=== PATIENT | female | born 1965 | race Caucasian/White ===

== ENCOUNTER 2021-02-27 12:37 | Outpatient (CLI) | payer MEDICARE, MEDICAID | END 2021-02-27 12:38 | disposition home or self-care (01) | LOC: CSHMAMMO 12:37 | PROVIDERS: ATTEND Family Medicine | DX: Z12.31 Encounter for screening mammogram for malignant neoplasm of breast (principal); Z80.3 Family history of malignant neoplasm of breast | CPT/HCPCS: 77063; 77067 ==

== ENCOUNTER 2021-06-09 19:11 | Emergency (ER) | payer MEDICARE, OTHER ==
[2021-06-09 20:18] LABS: #Eosinphils 0.2 10x3/uL (0.0-0.5); #Monocytes 0.5 10x3/uL (0.0-1.1); #Neutrophils 3.2 10x3/uL (1.5-8.4); %Basophils 0.6 % (0.0-2.0); %Eosinophils 4.5 % (0.0-6.0); %Lymphocytes 23.6 % (18.0-47.0); %Monocytes 10.2 % (0.0-10.0); %Neutrophils 60.9 % (40.0-75.0); Hemoglobin 12.1 g/dL (12.0-15.5); Mean Corpuscular HGB CONC 31.6 g/dL (32.0-36.0); Mean Corpuscular Hemoglobin 27.4 pg (27.0-33.0); Mean Corpuscular Volume 86.7 fl (81.6-98.3); Mean Platelet Volume 9.8 fl (7.4-10.4); Platelet Count 220 10x3/uL (150-450); RBC Distribution Width 13.6 % (11.5-14.5); Red Blood Cell (RBC) Count 4.42 10x6/uL (3.90-5.03); White Blood Cell (WBC) Count 5.3 10x3/uL (3.5-10.5)
[2021-06-09 20:27] LABS: Bilirubin Neg (Negative); Blood, Urine Negative (Negative); Clarity Clear (Clear); Glucose, Urine (Dipstick) Normal (Negative); Ketone, Urine Negative (Negative); Leukocyte Negative (Negative); Nitrite Negative (Negative); Protein, Urine (Dipstick) Negative (Neg-Trace); Urobilinogen Normal mg/dL (Less than 2); pH, Urine 6.5 (5.0-9.0)
[2021-06-09 20:38] LABS: ALT (SGPT) 9 U/L (8-55); AST (SGOT) 17 U/L (5-34); Albumin 4.1 g/dL (3.5-5.0); Alkaline Phosphatase 79 U/L (40-110); Anion Gap 13 mmol/L (10-20); BUN (Urea Nitrogen) 7 mg/dL (9.8-20.1); Bilirubin, Total 0.3 mg/dL (0.2-1.2); CK (CPK) 97 U/L (29-168); Calc. Creatinine Clearance 0 mL/min (70-130); Calcium 9.1 mg/dL (7.8-10.44); Carbon Dioxide 30 mmol/L (22-29); Chloride 100 mmol/L (98-107); Globulin 3.3 g/dL (2.4-3.5); Glucose 85 mg/dL (70-105); Potassium 3.8 mmol/L (3.5-5.1); Protein, Total 7.4 g/dL (6.0-8.3); Sodium 139 mmol/L (136-145)
== END 2021-06-09 21:50 | disposition home or self-care (01) ==
LOC: CSHERS 19:11
DX: B34.9 Viral infection, unspecified (principal); Z86.16 Personal history of COVID-19; I10 Essential (primary) hypertension; J45.909 Unspecified asthma, uncomplicated; Z79.899 Other long term (current) drug therapy; Z79.82 Long term (current) use of aspirin
CPT/HCPCS: 70450; 71275; 80053; 81003; 82550; 84484; 85025; 93005; 94760

== ENCOUNTER 2022-01-12 20:53 | Inpatient (IN) | payer OTHER, MEDICAID ==
[~2022-01-12 20:53] MED LIST: Iopamidol 370 76% 100 ML VIAL ONE
[2022-01-12] MEDS ORDERED: Albuterol Sulfate 2.5 mg/3 ml Neb ONE (21:05)
[2022-01-12] MEDS ORDERED: methylPREDNISolone Sod Succ/PF 125 MG/2 ML VIAL ONE (21:08)
[2022-01-12 21:21] LABS: #Eosinphils 0.2 10x3/uL (0.0-0.5); #Monocytes 0.7 10x3/uL (0.0-1.1); #Neutrophils 6.8 10x3/uL (1.5-8.4); %Basophils 0.3 % (0.0-2.0); %Eosinophils 1.9 % (0.0-6.0); %Lymphocytes 16.7 % (18.0-47.0); %Monocytes 7.9 % (0.0-10.0); %Neutrophils 72.3 % (40.0-75.0); Hemoglobin 12.8 g/dL (12.0-15.5); Mean Corpuscular HGB CONC 33.6 g/dL (32.0-36.0); Mean Corpuscular Hemoglobin 28.1 pg (27.0-33.0); Mean Corpuscular Volume 83.6 fl (81.6-98.3); Platelet Count 284 10x3/uL (150-450); RBC Distribution Width 13.6 % (11.5-14.5); Red Blood Cell (RBC) Count 4.56 10x6/uL (3.90-5.03); White Blood Cell (WBC) Count 9.4 10x3/uL (3.5-10.5)
[2022-01-12 21:44] LABS: ALT (SGPT) 19 U/L (8-55); AST (SGOT) 23 U/L (5-34); Albumin 4.3 g/dL (3.5-5.0); Alkaline Phosphatase 89 U/L (40-110); Anion Gap 18 mmol/L (10-20); BUN (Urea Nitrogen) 14 mg/dL (9.8-20.1); Bilirubin, Total 0.3 mg/dL (0.2-1.2); Calc. Creatinine Clearance 0 mL/min (70-130); Calcium 9.5 mg/dL (7.8-10.44); Carbon Dioxide 25 mmol/L (22-29); Chloride 93 mmol/L (98-107); Estimated GFR 32; Globulin 3.3 g/dL (2.4-3.5); Glucose 147 mg/dL (70-105); Magnesium 1.7 mg/dL (1.6-2.6); Potassium 3.1 mmol/L (3.5-5.1); Protein, Total 7.6 g/dL (6.0-8.3); Sodium 133 mmol/L (136-145)
[2022-01-13 00:02] LABS: Lactic Acid 2.2 mmol/L (0.5-2.2)
[2022-01-13 00:45] LABS: SARS-CoV-2 NAA Rapid Test DETECTED (NotDetected)
[2022-01-13] MEDS ORDERED: Sodium Chloride 0.9% 1,000 ML IV SCH ×3 (00:45→16:00)
[2022-01-13 01:28] LABS: Troponin I Less than 0.010 ng/mL (< 0.028)
[2022-01-13 01:53] LABS: Hemoglobin 12.4 g/dL (12.0-15.5); Platelet Count 291 10x3/uL (150-450)
[2022-01-13] MEDS ORDERED: Heparin 25,000 units/D5W 500 ML IVPB SCH (02:00)
[2022-01-13] MEDS ORDERED: Potassium Chloride 20 MEQ TAB PO SCH (02:00)
[2022-01-13] MEDS ORDERED: Benztropine 1 MG TAB PO SCH (02:00)
[2022-01-13] MEDS ORDERED: rOPINIRole HCl 1 MG TAB PO SCH (02:00)
[2022-01-13] MEDS ORDERED: traZODone HCl 50 MG TAB PO SCH (02:00)
[2022-01-13] MEDS ORDERED: Heparin 10,000 UNITS/ 10 ML VIAL SLOW IVP SCH (02:00)
[2022-01-13] MEDS ORDERED: Potassium Chloride 20 MEQ/100 ML PREMIX BAG ONE (02:03)
[2022-01-13] MEDS: Potassium Chloride 20 MEQ in Premix Bag 1 BAG IVPB SCH ×2 (02:08→04:29)
[2022-01-13] MEDS: Azithromycin 500 MG in Sodium Chloride 0.9% 250 ML 250 ML IVPB SCH (02:09)
[2022-01-13] MEDS: cefTRIAXone\\ROCEPHIN 2 GM in Sodium Chloride 0.9% 100 ML IVPB SCH (02:12)
[2022-01-13 04:59] LABS: #Monocytes 0.1 10x3/uL (0.0-1.1); #Neutrophils 8.1 10x3/uL (1.5-8.4); %Basophils 0.2 % (0.0-2.0); %Eosinophils 0.1 % (0.0-6.0); %Lymphocytes 7.8 % (18.0-47.0); %Neutrophils 90.1 % (40.0-75.0); Mean Corpuscular HGB CONC 32.9 g/dL (32.0-36.0); Mean Corpuscular Volume 85.3 fl (81.6-98.3); Platelet Count 296 10x3/uL (150-450); RBC Distribution Width 13.5 % (11.5-14.5); Red Blood Cell (RBC) Count 4.28 10x6/uL (3.90-5.03)
[2022-01-13 05:09] LABS: Troponin I Less than 0.010 ng/mL (< 0.028)
[2022-01-13 05:54] LABS: Anion Gap 18 mmol/L (10-20); BUN (Urea Nitrogen) 18 mg/dL (9.8-20.1); Calc. Creatinine Clearance 96 mL/min (70-130); Calcium 9.8 mg/dL (7.8-10.44); Carbon Dioxide 25 mmol/L (22-29); Chloride 95 mmol/L (98-107); Estimated GFR 42; Glucose 198 mg/dL (70-105); Magnesium 1.9 mg/dL (1.6-2.6); Sodium 134 mmol/L (136-145)
[2022-01-13 05:57] VITALS: BMI 45.6
[2022-01-13] MEDS ORDERED: methylPREDNISolone Sod Succ 40 MG VIAL IVP SCH (06:00)
[2022-01-13] MEDS: Dexamethasone 4 mg/ml Vial SLOW IVP SCH (08:19)
[2022-01-13] MEDS: Cholecalciferol 1,000 UNITS (25 MCG) TAB PO SCH (08:20)
[2022-01-13] MEDS: Zinc Sulfate 220 MG CAP PO SCH (08:20)
[2022-01-13] MEDS: Aspirin 81 mg Enteric Coated Tablet PO SCH (08:20)
[2022-01-13] MEDS ORDERED: DULoxetine 30 MG CAP PO SCH (09:00)
[2022-01-13] MEDS ORDERED: Ascorbic Acid 500 mg Chewable Tablet PO SCH (09:00)
[2022-01-13] MEDS ORDERED: REMDESIVIR 200 MG in Sodium Chloride 0.9% 250 ML 210 ML IV SCH (09:30)
[2022-01-13 09:41] LABS: PTT 126.1 sec (22.0-33.0)
[2022-01-13] MEDS: Apixaban 5 MG TAB PO SCH ×2 (11:36→21:35)
[2022-01-13] MEDS: Gabapentin 300 MG CAP PO SCH ×2 (14:36→21:36)
[2022-01-13] MEDS ORDERED: Acetaminophen 325 MG TAB PO SCH (21:00)
[2022-01-13] MEDS ORDERED: Cepastat Lozenges 1 LOZ PO SCH (21:15)
[2022-01-13] MEDS: traZODone HCl 50 MG TAB PO SCH (21:35)
[2022-01-13] MEDS: rOPINIRole HCl 1 MG TAB PO SCH (21:36)
[2022-01-13] MEDS: Methocarbamol 500 MG TAB PO SCH (21:37)
[2022-01-14] MEDS: cefTRIAXone\\ROCEPHIN 2 GM in Sodium Chloride 0.9% 100 ML IVPB SCH (02:02)
[2022-01-14] MEDS: Azithromycin 500 MG in Sodium Chloride 0.9% 250 ML 250 ML IVPB SCH (03:06)
[2022-01-14 06:27] LABS: ALT (SGPT) 14 U/L (8-55); AST (SGOT) 18 U/L (5-34); Albumin 3.1 g/dL (3.5-5.0); Alkaline Phosphatase 56 U/L (40-110); Anion Gap 16 mmol/L (10-20); BUN (Urea Nitrogen) 13 mg/dL (9.8-20.1); Bilirubin, Direct 0.1 mg/dL (0.1-0.3); Bilirubin, Total 0.2 mg/dL (0.2-1.2); Calc. Creatinine Clearance 176 mL/min (70-130); Calcium 7.4 mg/dL (7.8-10.44); Carbon Dioxide 24 mmol/L (22-29); Chloride 106 mmol/L (98-107); Estimated GFR 89; Glucose 118 mg/dL (70-105); Potassium 3.1 mmol/L (3.5-5.1); Protein, Total 5.5 g/dL (6.0-8.3); Sodium 143 mmol/L (136-145)
[2022-01-14] MEDS: Aspirin 81 mg Enteric Coated Tablet PO SCH (08:16)
[2022-01-14] MEDS: Apixaban 5 MG TAB PO SCH ×2 (08:16→21:12)
[2022-01-14] MEDS: Ascorbic Acid 500 mg Chewable Tablet PO SCH (08:17)
[2022-01-14] MEDS: Carvedilol 3.125 MG TAB PO SCH ×2 (08:17→17:51)
[2022-01-14] MEDS: Benztropine 1 MG TAB PO SCH (08:17)
[2022-01-14] MEDS: Donepezil HCl 5 MG TAB PO SCH (08:17)
[2022-01-14] MEDS: Zinc Sulfate 220 MG CAP PO SCH (08:17)
[2022-01-14] MEDS: Cholecalciferol 1,000 UNITS (25 MCG) TAB PO SCH (08:17)
[2022-01-14] MEDS: DULoxetine 30 MG CAP PO SCH (08:18)
[2022-01-14] MEDS: Methocarbamol 500 MG TAB PO SCH ×2 (08:20→21:14)
[2022-01-14] MEDS: Dexamethasone 4 mg/ml Vial SLOW IVP SCH (08:21)
[2022-01-14] MEDS: REMDESIVIR 100 MG in Sodium Chloride 0.9% 250 ML 230 ML IV SCH (09:45)
[2022-01-14] MEDS: Gabapentin 400 MG CAP PO SCH ×3 (09:56→21:13)
[2022-01-14] MEDS ORDERED: Moisturizing Cream (Eucerin) 113 GM JAR TOP PRN (10:16)
[2022-01-14] MEDS ORDERED: Calcium Carbonate 500 MG ChewTAB PO PRN (10:16)
[2022-01-14] MEDS ORDERED: Labetalol HCl 100 MG/20 ML VIAL SLOW IVP PRN (10:16)
[2022-01-14] MEDS ORDERED: diphenhydrAMINE 25 MG CAP PO PRN (10:16)
[2022-01-14] MEDS ORDERED: hydrALAZINE 20 MG/ML VIAL SLOW IVP PRN (10:16)
[2022-01-14] MEDS ORDERED: Acetaminophen 650 MG Suppository PR PRN (10:16)
[2022-01-14] MEDS ORDERED: Artificial Tear Sol 15 ML BOT EA EYE PRN (10:16)
[2022-01-14] MEDS ORDERED: Ondansetron ODT 4 MG TAB PO PRN (10:16)
[2022-01-14] MEDS ORDERED: Loperamide HCl 2 MG CAP PO PRN ×2 (10:16)
[2022-01-14] MEDS ORDERED: GUAIFENESIN SF SOLN 200 MG/10 ML UDCUP PO PRN (10:16)
[2022-01-14] MEDS ORDERED: Cepastat Lozenges 1 LOZ PO PRN (10:16)
[2022-01-14] MEDS: Acetaminophen 500 MG TAB PO PRN ×2 (11:37→21:12)
[2022-01-14] MEDS ORDERED: Electrolyte Replacement Protocol 1 EACH FS SCH (17:15)
[2022-01-14] MEDS ORDERED: Ventolin HFA Inhaler 60 PUFF INHALER INH PRN (19:12)
[2022-01-14] MEDS ORDERED: Potassium Chloride 20 MEQ TAB PO SCH (20:00)
[2022-01-14] MEDS ORDERED: Magnesium 2 GM/50 ML(in water) 2 GM in Premix Bag 1 BAG IVPB SCH (20:00)
[2022-01-14] MEDS: guaiFENesin ER 600 MG TAB PO SCH (21:12)
[2022-01-14] MEDS: Famotidine 20 MG TAB PO SCH (21:14)
[2022-01-14] MEDS: rOPINIRole HCl 1 MG TAB PO SCH (21:14)
[2022-01-14] MEDS: traZODone HCl 50 MG TAB PO SCH (21:15)
[2022-01-15 01:17] LABS: Platelet Count 275 10x3/uL (150-450)
[2022-01-15 01:18] LABS: Hemoglobin 11.7 g/dL (12.0-15.5)
[2022-01-15] MEDS ORDERED: cefTRIAXone\\ROCEPHIN 1 GM in Sodium Chloride 0.9% 100 ML IVPB SCH (02:00)
[2022-01-15] MEDS: Azithromycin 500 MG in Sodium Chloride 0.9% 250 ML 250 ML IVPB SCH (02:44)
[2022-01-15 06:05] LABS: ALT (SGPT) 18 U/L (8-55); AST (SGOT) 20 U/L (5-34); Albumin 3.6 g/dL (3.5-5.0); Alkaline Phosphatase 62 U/L (40-110); Anion Gap 14 mmol/L (10-20); BUN (Urea Nitrogen) 17 mg/dL (9.8-20.1); Bilirubin, Direct 0.1 mg/dL (0.1-0.3); Bilirubin, Total 0.2 mg/dL (0.2-1.2); Calc. Creatinine Clearance 125 mL/min (70-130); Calcium 8.6 mg/dL (7.8-10.44); Carbon Dioxide 28 mmol/L (22-29); Chloride 104 mmol/L (98-107); Estimated GFR 59; Glucose 100 mg/dL (70-105); Magnesium 2.3 mg/dL (1.6-2.6); Potassium 4.6 mmol/L (3.5-5.1); Protein, Total 6.4 g/dL (6.0-8.3); Sodium 141 mmol/L (136-145)
[2022-01-15] MEDS: Carvedilol 3.125 MG TAB PO SCH ×2 (10:00→17:43)
[2022-01-15] MEDS: Aspirin 81 mg Enteric Coated Tablet PO SCH (10:00)
[2022-01-15] MEDS: Benztropine 1 MG TAB PO SCH (10:00)
[2022-01-15] MEDS: guaiFENesin ER 600 MG TAB PO SCH ×2 (10:01→21:23)
[2022-01-15] MEDS: Apixaban 5 MG TAB PO SCH ×2 (10:01→21:22)
[2022-01-15] MEDS: Methocarbamol 500 MG TAB PO SCH ×2 (10:01→21:52)
[2022-01-15] MEDS: Cholecalciferol 1,000 UNITS (25 MCG) TAB PO SCH (10:01)
[2022-01-15] MEDS: Gabapentin 400 MG CAP PO SCH ×3 (10:02→21:23)
[2022-01-15] MEDS: DULoxetine 30 MG CAP PO SCH (10:02)
[2022-01-15] MEDS: Zinc Sulfate 220 MG CAP PO SCH (10:02)
[2022-01-15] MEDS: Famotidine 20 MG TAB PO SCH ×2 (10:03→21:22)
[2022-01-15] MEDS: Acetaminophen 500 MG TAB PO PRN ×2 (10:03→21:29)
[2022-01-15] MEDS: Donepezil HCl 5 MG TAB PO SCH (10:03)
[2022-01-15] MEDS: Ascorbic Acid 500 mg Chewable Tablet PO SCH (10:03)
[2022-01-15] MEDS: REMDESIVIR 100 MG in Sodium Chloride 0.9% 250 ML 230 ML IV SCH (10:04)
[2022-01-15] MEDS: rOPINIRole HCl 1 MG TAB PO SCH (21:22)
[2022-01-15] MEDS: traZODone HCl 50 MG TAB PO SCH (21:22)
[2022-01-16 06:38] LABS: ALT (SGPT) 19 U/L (8-55); AST (SGOT) 18 U/L (5-34); Albumin 3.8 g/dL (3.5-5.0); Alkaline Phosphatase 61 U/L (40-110); Bilirubin, Direct 0.2 mg/dL (0.1-0.3); Bilirubin, Total 0.4 mg/dL (0.2-1.2); Protein, Total 6.7 g/dL (6.0-8.3)
[2022-01-16] MEDS: Non-Formulary Medication 1 EACH (Iron [Iron] 18 MG Tablet) PO SCH ×2 (07:59→21:34)
[2022-01-16] MEDS: VALBENAZINE TOSYLATE 40 MG PO SCH ×2 (07:59→21:35)
[2022-01-16] MEDS: VALBENAZINE TOSYLATE 80 MG PO SCH ×2 (07:59→21:35)
[2022-01-16] MEDS: REMDESIVIR 100 MG in Sodium Chloride 0.9% 250 ML 230 ML IV SCH (10:51)
[2022-01-16] MEDS: Methocarbamol 500 MG TAB PO SCH ×2 (10:51→21:05)
[2022-01-16] MEDS: Aspirin 81 mg Enteric Coated Tablet PO SCH (10:52)
[2022-01-16] MEDS: DULoxetine 30 MG CAP PO SCH (10:52)
[2022-01-16] MEDS: guaiFENesin ER 600 MG TAB PO SCH ×2 (10:52→21:03)
[2022-01-16] MEDS: Gabapentin 400 MG CAP PO SCH ×3 (10:53→21:03)
[2022-01-16] MEDS: Acetaminophen 500 MG TAB PO PRN (10:53)
[2022-01-16] MEDS: Cholecalciferol 1,000 UNITS (25 MCG) TAB PO SCH (10:54)
[2022-01-16] MEDS: Ascorbic Acid 500 mg Chewable Tablet PO SCH (10:54)
[2022-01-16] MEDS: Famotidine 20 MG TAB PO SCH ×2 (10:54→21:03)
[2022-01-16] MEDS: Apixaban 5 MG TAB PO SCH ×2 (10:54→21:04)
[2022-01-16] MEDS: Donepezil HCl 5 MG TAB PO SCH (10:54)
[2022-01-16] MEDS: Zinc Sulfate 220 MG CAP PO SCH (10:55)
[2022-01-16] MEDS: Carvedilol 3.125 MG TAB PO SCH ×2 (10:55→16:08)
[2022-01-16] MEDS: Benztropine 1 MG TAB PO SCH (10:55)
[2022-01-16] MEDS: traZODone HCl 50 MG TAB PO SCH (21:03)
[2022-01-16] MEDS: rOPINIRole HCl 1 MG TAB PO SCH (21:05)
[2022-01-17 00:48] LABS: Hemoglobin 12.5 g/dL (12.0-15.5); Platelet Count 283 10x3/uL (150-450)
[2022-01-17 05:05] LABS: ALT (SGPT) 18 U/L (8-55); AST (SGOT) 18 U/L (5-34); Albumin 3.8 g/dL (3.5-5.0); Alkaline Phosphatase 67 U/L (40-110); Bilirubin, Direct 0.2 mg/dL (0.1-0.3); Bilirubin, Total 0.5 mg/dL (0.2-1.2); Protein, Total 6.7 g/dL (6.0-8.3)
[2022-01-17] MEDS: REMDESIVIR 100 MG in Sodium Chloride 0.9% 250 ML 230 ML IV SCH (09:07)
[2022-01-17] MEDS: Benztropine 1 MG TAB PO SCH (09:08)
[2022-01-17] MEDS: Apixaban 5 MG TAB PO SCH ×2 (09:08→21:15)
[2022-01-17] MEDS: Methocarbamol 500 MG TAB PO SCH ×2 (09:08→21:17)
[2022-01-17] MEDS: Ascorbic Acid 500 mg Chewable Tablet PO SCH (09:08)
[2022-01-17] MEDS: DULoxetine 30 MG CAP PO SCH (09:09)
[2022-01-17] MEDS: Famotidine 20 MG TAB PO SCH ×2 (09:09→21:16)
[2022-01-17] MEDS: Gabapentin 400 MG CAP PO SCH ×3 (09:12→21:15)
[2022-01-17] MEDS: Carvedilol 3.125 MG TAB PO SCH ×2 (09:12→17:33)
[2022-01-17] MEDS: Donepezil HCl 5 MG TAB PO SCH (09:12)
[2022-01-17] MEDS: guaiFENesin ER 600 MG TAB PO SCH ×2 (09:12→21:16)
[2022-01-17] MEDS: Cholecalciferol 1,000 UNITS (25 MCG) TAB PO SCH (09:13)
[2022-01-17] MEDS: Zinc Sulfate 220 MG CAP PO SCH (09:13)
[2022-01-17] MEDS: Aspirin 81 mg Enteric Coated Tablet PO SCH (09:13)
[2022-01-17] MEDS: rOPINIRole HCl 1 MG TAB PO SCH (21:16)
[2022-01-17] MEDS: traZODone HCl 50 MG TAB PO SCH (21:17)
[2022-01-18] MEDS: Cholecalciferol 1,000 UNITS (25 MCG) TAB PO SCH (08:20)
[2022-01-18] MEDS: Ascorbic Acid 500 mg Chewable Tablet PO SCH (08:20)
[2022-01-18] MEDS: guaiFENesin ER 600 MG TAB PO SCH (08:20)
[2022-01-18] MEDS: Aspirin 81 mg Enteric Coated Tablet PO SCH (08:21)
[2022-01-18] MEDS: Donepezil HCl 5 MG TAB PO SCH (08:21)
[2022-01-18] MEDS: Carvedilol 3.125 MG TAB PO SCH (08:21)
[2022-01-18] MEDS: Apixaban 5 MG TAB PO SCH (08:21)
[2022-01-18] MEDS: DULoxetine 30 MG CAP PO SCH (08:21)
[2022-01-18] MEDS: Gabapentin 400 MG CAP PO SCH (08:21)
[2022-01-18] MEDS: Zinc Sulfate 220 MG CAP PO SCH (08:21)
[2022-01-18] MEDS: Famotidine 20 MG TAB PO SCH (08:22)
[2022-01-18] MEDS: Benztropine 1 MG TAB PO SCH (08:23)
[2022-01-18] MEDS: Methocarbamol 500 MG TAB PO SCH (08:23)
[2022-01-18 09:22] LABS: #Eosinphils 0.2 10x3/uL (0.0-0.5); #Monocytes 0.7 10x3/uL (0.0-1.1); #Neutrophils 5.3 10x3/uL (1.5-8.4); %Basophils 0.5 % (0.0-2.0); %Lymphocytes 18.1 % (18.0-47.0); %Monocytes 8.9 % (0.0-10.0); %Neutrophils 69.1 % (40.0-75.0); Hemoglobin 12.8 g/dL (12.0-15.5); Mean Corpuscular HGB CONC 32.7 g/dL (32.0-36.0); Mean Corpuscular Hemoglobin 28.2 pg (27.0-33.0); Mean Corpuscular Volume 86.1 fl (81.6-98.3); Mean Platelet Volume 9.1 fl (7.4-10.4); Platelet Count 248 10x3/uL (150-450); RBC Distribution Width 14.1 % (11.5-14.5); Red Blood Cell (RBC) Count 4.54 10x6/uL (3.90-5.03); White Blood Cell (WBC) Count 7.6 10x3/uL (3.5-10.5)
[2022-01-18 13:05] VITALS: BP 106/74; TEMP 96.2
[2022-01-20] MEDS ORDERED: Apixaban 5 MG TAB PO SCH (09:00)
== END 2022-01-18 12:50 | disposition home or self-care (01) | DRG 177 ==
LOC: CSHERS 20:53 → CSHICU 23:55 → UNDOADMIN 01-13 01:29 → CSHTELE 01-13 14:17
PROVIDERS: ADMIT Family Medicine; ATTEND Internal Medicine
PROC: XW033E5 Introduction of Remdesivir Anti-infective into Peripheral Vein, Percutaneous Approach, New Technology Group 5 (ICD-10-PCS; principal; 2022-01-13)
PROC: 5A09357 Assistance with Respiratory Ventilation, Less than 24 Consecutive Hours, Continuous Positive Airway Pressure (ICD-10-PCS; 2022-01-13)
PROC: 8E0ZXY6 Isolation (ICD-10-PCS; 2022-01-13)
DX: U07.1 COVID-19 (principal); I26.93 Single subsegmental thrombotic pulmonary embolism without acute cor pulmonale; J96.01 Acute respiratory failure with hypoxia; J12.82 Pneumonia due to coronavirus disease 2019; Z68.42 Body mass index [BMI] 45.0-49.9, adult; J45.909 Unspecified asthma, uncomplicated; F41.9 Anxiety disorder, unspecified; F31.9 Bipolar disorder, unspecified; F20.9 Schizophrenia, unspecified; K21.9 Gastro-esophageal reflux disease without esophagitis; I51.7 Cardiomegaly; E87.6 Hypokalemia; G24.01 Drug induced subacute dyskinesia; N18.32 Chronic kidney disease, stage 3b; I12.9 Hypertensive chronic kidney disease with stage 1 through stage 4 chronic kidney disease, or unspecified chronic kidney disease; E66.01 Morbid (severe) obesity due to excess calories; Z88.8 Allergy status to other drugs, medicaments and biological substances; Z79.82 Long term (current) use of aspirin; Z79.899 Other long term (current) drug therapy; Z98.890 Other specified postprocedural states
CPT/HCPCS: 36415; 71045; 71275; 80048; 80053; 80076; 83605; 83735; 83880; 84145; 84484; 85014; 85018; 85025; 85049; 85730; 87040; 87633; 87804; 93005; 93010; 93306; 93970; 94660; 94760; 96374; J0248; J0456; J0696; J1100; J1644; J2930; J3475; J3480; J3490; J7050; J7611; Q9967; U0002

== ENCOUNTER 2023-01-27 08:18 | Outpatient (CLI) | payer OTHER, MEDICAID ==
[2023-01-27] MEDS ORDERED: Magnevist 469MG/ML 20 ML VIAL ONE (12:51)
== END 2023-01-27 08:19 | disposition home or self-care (01) ==
LOC: CSHMRI 08:18
PROVIDERS: ATTEND Psychiatry & Neurology Neurology
DX: R41.3 Other amnesia (principal); R94.02 Abnormal brain scan
CPT/HCPCS: 70553

== ENCOUNTER 2023-02-09 08:04 | Outpatient (CLI) | payer OTHER, MEDICAID ==
[2023-02-09] MEDS ORDERED: Iopamidol 370 76% 100 ML VIAL ONE (08:32)
== END 2023-02-09 08:05 | disposition home or self-care (01) ==
LOC: CSHCT 08:04
PROVIDERS: ATTEND Psychiatry & Neurology Neurology
DX: R94.02 Abnormal brain scan (principal)
CPT/HCPCS: 70496; 82565

== ENCOUNTER 2023-06-25 13:44 | Inpatient (IN) | payer OTHER, MEDICAID ==
[2023-06-25] MEDS ORDERED: Iopamidol 370 76% 100 ML VIAL ONE (14:26)
[2023-06-25 14:32] LABS: #Eosinphils 0.3 10x3/uL (0.0-0.5); #Monocytes 0.7 10x3/uL (0.0-1.1); #Neutrophils 4.9 10x3/uL (1.5-8.4); %Basophils 0.6 % (0.0-2.0); %Eosinophils 4.6 % (0.0-6.0); %Lymphocytes 11.8 % (18.0-47.0); %Neutrophils 72.6 % (40.0-75.0); Hematocrit 42.4 % (34.9-44.5); Hemoglobin 13.8 g/dL (12.0-15.5); Mean Corpuscular HGB CONC 32.5 g/dL (32.0-36.0); Mean Corpuscular Hemoglobin 28.5 pg (27.0-33.0); Mean Corpuscular Volume 87.6 fl (81.6-98.3); Mean Platelet Volume 9.6 fl (7.4-10.4); Platelet Count 260 10x3/uL (150-450); RBC Distribution Width 13.6 % (11.5-14.5); Red Blood Cell (RBC) Count 4.84 10x6/uL (3.90-5.03); White Blood Cell (WBC) Count 6.8 10x3/uL (3.5-10.5)
[2023-06-25 14:48] LABS: ALT (SGPT) 8 U/L (8-55); AST (SGOT) 16 U/L (5-34); Albumin 4.2 g/dL (3.5-5.0); Alkaline Phosphatase 90 U/L (40-110); Anion Gap 15 mmol/L (10-20); BUN (Urea Nitrogen) 5 mg/dL (9.8-20.1); Bilirubin, Total 0.4 mg/dL (0.2-1.2); Calc. Creatinine Clearance 0 mL/min (70-130); Calcium 9.3 mg/dL (7.8-10.44); Carbon Dioxide 24 mmol/L (22-29); Chloride 108 mmol/L (98-107); Estimated GFR 57; Globulin 2.8 g/dL (2.4-3.5); Glucose 92 mg/dL (70-105); Potassium 3.9 mmol/L (3.5-5.1); Sodium 143 mmol/L (136-145)
[2023-06-25 14:55] LABS: Troponin I Less than 0.010 ng/mL (< 0.028)
[2023-06-25] MEDS ORDERED: Acetaminophen 325 MG TAB PO PRN (17:02)
[2023-06-25 17:34] LABS: Troponin I Less than 0.010 ng/mL (< 0.028)
[2023-06-25 18:35] LABS: Magnesium 1.7 mg/dL (1.6-2.6)
[2023-06-25 19:51] LABS: Influenza A by NAA Not Detected (NotDetected); Influenza B by NAA Not Detected (NotDetected); SARS-CoV-2 NAA Rapid Test Not Detected (NotDetected)
[2023-06-25 20:39] LABS: Troponin I Less than 0.010 ng/mL (< 0.028)
[2023-06-25] MEDS: Enoxaparin 40 MG (0.4 mL) SYRINGE SC SCH (22:00)
[2023-06-25] MEDS: Aspirin 325 MG TAB PO SCH (22:00)
[2023-06-25 22:10] VITALS: BMI 47.8
[2023-06-26] MEDS: Guaifenesin DM 100-10/5 ML UDCUP PO PRN (01:28)
[2023-06-26] MEDS: Gabapentin 400 MG CAP PO SCH ×2 (01:28→09:40)
[2023-06-26] MEDS: HYDROcodone/Acetaminophen 10/325 mg Tablet PO SCH ×2 (01:30→09:39)
[2023-06-26 04:59] LABS: #Eosinphils 0.4 10x3/uL (0.0-0.5); #Monocytes 0.6 10x3/uL (0.0-1.1); #Neutrophils 3.6 10x3/uL (1.5-8.4); %Basophils 0.7 % (0.0-2.0); %Eosinophils 6.2 % (0.0-6.0); %Lymphocytes 20.5 % (18.0-47.0); %Monocytes 10.6 % (0.0-10.0); %Neutrophils 61.5 % (40.0-75.0); Hematocrit 40.4 % (34.9-44.5); Hemoglobin 12.6 g/dL (12.0-15.5); Mean Corpuscular HGB CONC 31.2 g/dL (32.0-36.0); Mean Corpuscular Hemoglobin 27.2 pg (27.0-33.0); Mean Corpuscular Volume 87.1 fl (81.6-98.3); Mean Platelet Volume 9.6 fl (7.4-10.4); Platelet Count 254 10x3/uL (150-450); RBC Distribution Width 13.5 % (11.5-14.5); Red Blood Cell (RBC) Count 4.64 10x6/uL (3.90-5.03); White Blood Cell (WBC) Count 5.8 10x3/uL (3.5-10.5)
[2023-06-26 05:06] VITALS: TEMP 97.9
[2023-06-26 05:13] LABS: Anion Gap 13 mmol/L (10-20); BUN (Urea Nitrogen) 7 mg/dL (9.8-20.1); Calc. Creatinine Clearance 128 mL/min (70-130); Carbon Dioxide 26 mmol/L (22-29); Cardiac Risk 4.4 (Less than 4.5); Chloride 101 mmol/L (98-107); Cholesterol 140 mg/dl (< 200 Desired); Estimated GFR 58; Glucose 94 mg/dL (70-105); HDL Cholesterol 32 mg/dL (>60 Neg Risk); LDL Cholesterol, Calculated 87 mg/dL; Potassium 3.9 mmol/L (3.5-5.1); Sodium 136 mmol/L (136-145); Triglycerides 107 mg/dL (Less than 150)
[2023-06-26] MEDS ORDERED: HYDROcodone/Acetaminophen 10/325 mg Tablet PO PRN (08:25)
[2023-06-26] MEDS ORDERED: [UNRECOGNIZED DRUG - OTHER] PO SCH (09:00)
[2023-06-26] MEDS ORDERED: VITAMIN K2 PO SCH (09:00)
[2023-06-26] MEDS ORDERED: Non-Formulary Medication 1 EACH (Iron [Iron] 18 MG Tablet) PO SCH (09:00)
[2023-06-26] MEDS ORDERED: VITAMIN D3 PO SCH (09:00)
[2023-06-26] MEDS ORDERED: VALBENAZINE TOSYLATE 40 MG PO SCH (09:00)
[2023-06-26] MEDS ORDERED: DULoxetine 60 MG CAP PO SCH (09:00)
[2023-06-26] MEDS: Multivitamin W/ Minerals 1 TAB PO SCH (09:40)
[2023-06-26] MEDS: DULoxetine 30 MG CAP PO SCH (09:40)
[2023-06-26] MEDS: Benztropine 1 MG TAB PO SCH (09:40)
[2023-06-26] MEDS: Methocarbamol 500 MG TAB PO SCH (09:41)
[2023-06-26] MEDS: Hydrochlorothiazide 25 MG TAB PO SCH (09:41)
[2023-06-26] MEDS: Amlodipine 10 MG TAB PO SCH (09:42)
[2023-06-26] MEDS: Aspirin Chewable 81 MG TAB PO SCH (09:42)
[2023-06-26] MEDS: Dexamethasone 4 MG TAB PO SCH (09:43)
[2023-06-26] MEDS: Ascorbic Acid 500 mg Chewable Tablet PO SCH (09:43)
[2023-06-26 12:51] VITALS: BP 152/89
[2023-06-26] MEDS ORDERED: rOPINIRole HCl 1 MG TAB PO SCH (21:00)
[2023-06-26] MEDS ORDERED: QUEtiapine 100 MG TAB PO SCH (21:00)
[2023-06-26] MEDS ORDERED: Donepezil HCl 5 MG TAB PO SCH (21:00)
== END 2023-06-26 18:21 | disposition home or self-care (01) | DRG 313 ==
LOC: CSHERS 13:44 → CSHTELE 15:37
PROVIDERS: ADMIT Family Medicine; ATTEND Nurse Practitioner Family
DX: R07.2 Precordial pain (principal); N18.30 Chronic kidney disease, stage 3 unspecified; F20.9 Schizophrenia, unspecified; K21.9 Gastro-esophageal reflux disease without esophagitis; I12.9 Hypertensive chronic kidney disease with stage 1 through stage 4 chronic kidney disease, or unspecified chronic kidney disease; Z96.653 Presence of artificial knee joint, bilateral; Z96.0 Presence of urogenital implants; Z86.16 Personal history of COVID-19; Z88.5 Allergy status to narcotic agent; Z79.82 Long term (current) use of aspirin; Z79.899 Other long term (current) drug therapy; Z86.711 Personal history of pulmonary embolism; Z98.890 Other specified postprocedural states; Z98.49 Cataract extraction status, unspecified eye; Z83.3 Family history of diabetes mellitus; Z82.49 Family history of ischemic heart disease and other diseases of the circulatory system
CPT/HCPCS: 36415; 71045; 71275; 80048; 80053; 80061; 83735; 83880; 84443; 84484; 85025; 93005; 93306; 94760; 94762; J1650; J8540; Q9967

== ENCOUNTER 2023-09-22 07:13 | Outpatient (CLI) | payer OTHER, MEDICAID ==
[2023-09-22 09:15] LABS: Actual Bicarbonate (HCO3a) 26.6 mEq/L (22-28); Analyzer IN Cardio CS ER; Base Excess (BEa) 1.2 mEq/L (-2.0 to +3.0); CO2 Tension 45.2 mmHg (35.0-45.0); Calcium, Ionized (arterial) 1.19 mmol/L (1.12-1.30); Carboxyhemoglobin (COHb) 0.7 gm% (0.0-3.0); Hematocrit-ABG 41 % (36.0-47.0); O2 Tension (PaO2), arterial 89.3 mmHg (80.0-100.0); Potassium - ABG Lab 3.52 mmol/L (3.70-5.30); Puncture Site RBA; pH, Arterial 7.388 (7.35-7.45)
== END 2023-09-22 07:14 | disposition home or self-care (01) ==
LOC: CSHCP 07:13
PROVIDERS: ATTEND Student in an Organized Health Care Education/Training Program
DX: R06.09 Other forms of dyspnea (principal); J98.4 Other disorders of lung
CPT/HCPCS: 36600; 82805; 94010; 94726; 94729; 94760

== ENCOUNTER 2023-10-25 13:41 | Emergency (ER) | payer OTHER ==
[2023-10-25 14:16] LABS: #Basophils 0.05 10x3/uL (0.0-0.2); #Eosinphils 0.35 10x3/uL (0.0-0.5); #Monocytes 0.73 10x3/uL (0.0-1.1); #Neutrophils 7.81 10x3/uL (1.5-8.4); %Basophils 0.5 % (0.0-2.0); %Eosinophils 3.5 % (0.0-6.0); %Lymphocytes 11.6 % (18.0-47.0); %Monocytes 7.2 % (0.0-10.0); Hematocrit 37.9 % (34.9-44.5); Hemoglobin 12.7 g/dL (12.0-15.5); Mean Corpuscular HGB CONC 33.5 g/dL (32.0-36.0); Mean Corpuscular Volume 83.5 fL (81.6-98.3); Mean Platelet Volume 10.1 fL (7.4-10.4); Platelet Count 293 10x3/uL (150-450); RBC Distribution Width 14.1 % (11.5-14.5); Red Blood Cell (RBC) Count 4.54 10x6/uL (3.90-5.03); White Blood Cell (WBC) Count 10.1 10x3/uL (3.5-10.5)
[2023-10-25 14:30] LABS: Troponin I Less than 0.010 ng/mL (< 0.028)
[2023-10-25 14:36] LABS: ALT (SGPT) 18 U/L (8-55); AST (SGOT) 25 U/L (5-34); Albumin 3.9 g/dL (3.5-5.0); Alkaline Phosphatase 85 U/L (40-110); Anion Gap 18 mmol/L (10-20); BUN (Urea Nitrogen) 9 mg/dL (9.8-20.1); Bilirubin, Total 0.4 mg/dL (0.2-1.2); Calc. Creatinine Clearance 0 mL/min (70-130); Calcium 9.5 mg/dL (7.8-10.44); Carbon Dioxide 23 mmol/L (22-29); Chloride 103 mmol/L (98-107); Estimated GFR 59; Globulin 2.9 g/dL (2.4-3.5); Glucose 133 mg/dL (70-105); Potassium 3.3 mmol/L (3.5-5.1); Protein, Total 6.8 g/dL (6.0-8.3); Sodium 141 mmol/L (136-145)
== END 2023-10-25 18:00 | disposition home or self-care (01) ==
LOC: CSHERS 13:41
DX: F03.90 Unspecified dementia, unspecified severity, without behavioral disturbance, psychotic disturbance, mood disturbance, and anxiety (principal); R06.02 Shortness of breath; I10 Essential (primary) hypertension; Z86.16 Personal history of COVID-19; Z87.891 Personal history of nicotine dependence
CPT/HCPCS: 36415; 71045; 71275; 80053; 83880; 84484; 85025; 85379; 93005; Q9967

== ENCOUNTER 2025-04-11 10:23 | Outpatient (CLI) | payer OTHER, MEDICAID | END 2025-04-11 10:24 | disposition home or self-care (01) | LOC: CSHMRI 10:23 | PROVIDERS: ATTEND Orthopaedic Surgery Hand Surgery | DX: S63.592A Other specified sprain of left wrist, initial encounter (principal); M77.8 Other enthesopathies, not elsewhere classified; M67.832 Other specified disorders of synovium, left wrist ==